=== PATIENT | male | born 1990 | race Caucasian/White ===

== ENCOUNTER 2018-02-19 18:10 | Emergency (ER) | payer MEDICAID ==
[~2018-02-19] VITALS: Ht 193 cm; Wt 83.5 kg
[2018-02-19 19:04] LABS: Basophils # (auto) 0 uL; Basophils % (auto) 0.3 % (0.0-2.0); Eosinophils # (auto) 0 uL; Eosinophils % (auto) 0.4 % (0.0-7.0); Hemoglobin 17.7 g/dL (13.5-17.5); Mean Corpuscular Volume 88.2 fL (80.0-100.0); Monocytes # (auto) 0.4 uL
[2018-02-19 19:07] LABS: Hematocrit 50.5 % (41.0-53.0); Lymphocytes # (auto) 0.9 uL; Lymphocytes % (auto) 11.4 % (10.0-50.0); Mean Corpuscular Hemoglobin 30.8 pg (28.0-32.0); Monocytes % (auto) 5.4 % (0.0-12.0); Neutrophils # (auto) 6.8 uL; Neutrophils % (auto) 82.5 % (37.0-80.0); Nucleated Red Blood Cells % 0.3 %; Platelet Count (auto) 138 10^3/uL (140-450); Red Blood Cells 5.72 10^6/uL (4.5-5.90); Red Cell Distribution Width 14.1 % (11.8-14.3); White Blood Cell 8.2 10^3/uL (4.4-10.8)
[2018-02-19 19:25] LABS: BUN/Creatinine Ratio 13.3; Bilirubin, Total 0.6 mg/dL (0.2-1.0); Potassium 4.5 mmol/L (3.5-5.1); Total Protein 8.8 g/dL (6.4-8.2)
[2018-02-19 20:27] VITALS: BP 140/84
[2018-02-19 20:50] LABS: Urine Bacteria NONE SEEN /hpf (None Seen); Urine Blood Negative /uL (Negative); Urine Mucus FEW (None Seen); Urine Specific Gravity 1.013 (1.001-1.035); Urine WBC 1 /hpf (0 - 3)
== END 2018-02-19 21:38 | disposition home or self-care (01) ==
LOC: ER 18:10
DX: R30.0 Dysuria (principal); R10.9 Unspecified abdominal pain; Z88.0 Allergy status to penicillin
CPT/HCPCS: 36415; 74176; 80053; 81001; 85025

== ENCOUNTER 2018-02-25 10:54 | Emergency (ER) | payer MEDICAID ==
[~2018-02-25] VITALS: Ht 193 cm; Wt 81.6 kg
[2018-02-25 11:29] VITALS: BP 125/88
== END 2018-02-25 12:08 | disposition home or self-care (01) ==
LOC: ER 10:54
DX: R35.0 Frequency of micturition (principal); R39.15 Urgency of urination; Z88.0 Allergy status to penicillin

== ENCOUNTER 2021-08-06 12:31 | Emergency (ER) | payer MEDICAID ==
[~2021-08-06] VITALS: Ht 193 cm; Wt 83.9 kg
[2021-08-06 13:05] VITALS: BP 130/89
== END 2021-08-06 15:14 | disposition home or self-care (01) ==
LOC: ER 12:31
DX: M70.21 Olecranon bursitis, right elbow (principal); Z88.0 Allergy status to penicillin
CPT/HCPCS: 10060; 73080